=== PATIENT | male | born 1965 | race Caucasian/White ===

== ENCOUNTER 2017-11-12 06:36 | Emergency (ER) | payer BC ==
[2017-11-12 08:46] LABS: ADD MAN DIFF? NO
[2017-11-12 08:49] LABS: WHITE BLOOD COUNT 13.6 10^3/ul (4.8-10.8)
[2017-11-12 08:49] LABS: BASOPHIL # 0.1 10^3/ul (0.0-0.1); BASOPHILS % 0.6 % (0.0-2.0); EOSINOPHILS # 0.3 10^3/ul (0.0-0.5); EOSINOPHILS % 2.4 % (0.0-7.0); HEMATOCRIT 40.3 % (42.0-52.0); LYMPHOCYTES # 2.7 10^3/ul (0.8-2.9); LYMPHOCYTES % 20.1 % (15.0-51.0); MEAN CORPUSCULAR HEMOGLOBIN 26.5 pg (29.0-33.0); MEAN CORPUSCULAR HGB CONC 32.3 g/dl (32.0-37.0); MEAN CORPUSCULAR VOLUME 82.1 fl (82.0-101.0); MEAN PLATELET VOLUME 10.7 fl (7.4-10.4); MONOCYTE # 1.1 10^3/ul (0.3-0.9); NEUTROPHIL # 9.3 10^3/ul (1.6-7.5); NEUTROPHILS % 68.5 % (39.0-77.0); PLATELET COUNT 315 10^3/UL (140-415); RED BLOOD COUNT 4.91 10^6/ul (4.70-6.10); RED CELL DISTRIBUTION WIDTH 13.4 % (11.5-14.5)
[2017-11-12 09:16] LABS: ANION GAP 15 (8-16); BLOOD UREA NITROGEN 17 mg/dl (7-20); CALCIUM 8.6 mg/dl (8.4-10.2); CARBON DIOXIDE 25 mmol/L (21-31); CHLORIDE 107 mmol/L (97-110); CREATININE 0.87 mg/dl (0.61-1.24); GLUCOSE 120 mg/dl (70-220); POTASSIUM 4.1 mmol/L (3.5-5.1); SODIUM 143 mmol/L (135-144)
[2017-11-12 09:29] LABS: B-TYPE NATRIURETIC PEPTIDE 4350 PG/ML (0-125); TROPONIN-I 0.059 ng/ml (0.00-0.12)
[2017-11-12] MEDS ORDERED: NITROGLYCERIN 2% 1 GM OINT PKT TD (09:47)
[2017-11-12] MEDS ORDERED: ASPIRIN 325 MG TAB PO (09:47)
[2017-11-12] MEDS ORDERED: AZITHROMYCIN 500MG/NS (PMX) 250 ML IVPB (10:00)
[2017-11-12] MEDS ORDERED: NITROGLYCERIN (SL) 0.4 MG TAB SL (10:00)
[2017-11-12] MEDS ORDERED: CEFTRIAXONE 1 GM/50 ML (PMX) 50 ML IVPB (10:00)
== END 2017-11-12 10:30 | disposition left against medical advice (07) ==
LOC: FTE 06:36
DX: I21.4 Non-ST elevation (NSTEMI) myocardial infarction (principal); J18.9 Pneumonia, unspecified organism; I10 Essential (primary) hypertension; F17.210 Nicotine dependence, cigarettes, uncomplicated; Z79.82 Long term (current) use of aspirin
CPT/HCPCS: 36415; 71045; 80048; 83880; 84484; 85025; 93005; 99285-25

== ENCOUNTER 2018-08-04 20:26 | Inpatient (IN) | payer BC ==
[2018-08-04 21:25] LABS: ADD MAN DIFF? NO
[2018-08-04 21:28] LABS: WHITE BLOOD COUNT 9.6 10^3/ul (4.8-10.8)
[2018-08-04 21:28] LABS: BASOPHIL # 0.1 10^3/ul (0.0-0.1); BASOPHILS % 0.6 % (0.0-2.0); EOSINOPHILS # 0.4 10^3/ul (0.0-0.5); EOSINOPHILS % 4.6 % (0.0-7.0); HEMATOCRIT 42.9 % (42.0-52.0); HEMOGLOBIN 13.5 g/dl (14.0-18.0); MEAN CORPUSCULAR HEMOGLOBIN 26.8 pg (29.0-33.0); MEAN CORPUSCULAR HGB CONC 31.5 g/dl (32.0-37.0); MEAN CORPUSCULAR VOLUME 85.1 fl (82.0-101.0); MEAN PLATELET VOLUME 9.8 fl (7.4-10.4); MONOCYTE # 0.7 10^3/ul (0.3-0.9); MONOCYTES % 7.7 % (0.0-11.0); NEUTROPHIL # 6.3 10^3/ul (1.6-7.5); NEUTROPHILS % 65.8 % (39.0-77.0); PLATELET COUNT 273 10^3/UL (140-415); RED BLOOD COUNT 5.04 10^6/ul (4.70-6.10); RED CELL DISTRIBUTION WIDTH 13.6 % (11.5-14.5)
[2018-08-04 21:46] LABS: ALANINE AMINOTRANSFERASE 36 IU/L (13-69); ALBUMIN 3.3 g/dl (3.3-4.9); ALKALINE PHOSPHATASE 108 IU/L (42-121); ANION GAP 13 (8-16); ASPARTATE AMINO TRANSFERASE 25 IU/L (15-46); BILIRUBIN,INDIRECT 0.4 mg/dl (0-1.1); BILIRUBIN,TOTAL 0.4 mg/dl (0.2-1.3); BLOOD UREA NITROGEN 19 mg/dl (7-20); CALCIUM 8.8 mg/dl (8.4-10.2); CARBON DIOXIDE 28 mmol/L (21-31); CHLORIDE 106 mmol/L (97-110); CREATININE 0.88 mg/dl (0.61-1.24); GLUCOSE 127 mg/dl (70-220); SODIUM 143 mmol/L (135-144); TOTAL PROTEIN 6.3 g/dl (6.1-8.1)
[2018-08-04 21:47] LABS: INR 1.02; PROTIME 13.5 Sec (11.9-14.9); PT RATIO 1.1
[2018-08-04 21:48] LABS: PARTIAL THROMBOPLASTIN TIME 28.9 Sec (23.0-35.0)
[2018-08-04 21:57] LABS: B-TYPE NATRIURETIC PEPTIDE 1410 PG/ML (0-125); TROPONIN-I 0.021 ng/ml (0.000-0.120)
[2018-08-04] MEDS: NITROGLYCERIN 50 MG/D5W (PMX) 250 ML IV (22:01)
[2018-08-04] MEDS: FUROSEMIDE 40 MG INJ IV (22:58)
[2018-08-05] MEDS ORDERED: ONDANSETRON 4 MG INJ IV
[2018-08-05] MEDS ORDERED: ALBUTEROL/IPRATROPIUM (NEB) 3 ML AMP NEB
[2018-08-05] MEDS ORDERED: ACETAMINOPHEN 650MG/20.3ML CUP PO
[2018-08-05] MEDS: LOSARTAN 50 MG TAB PO ×2 (00:42→08:31)
[2018-08-05] MEDS: METOPROLOL 25 MG TAB PO (00:43)
[2018-08-05] MEDS ORDERED: NITROGLYCERIN 50 MG/D5W (PMX) 250 ML IV (03:17)
[2018-08-05 05:07] LABS: ADD MAN DIFF? NO; BASOPHIL # 0.1 10^3/ul (0.0-0.1); BASOPHILS % 0.8 % (0.0-2.0); EOSINOPHILS # 0.5 10^3/ul (0.0-0.5); EOSINOPHILS % 4.7 % (0.0-7.0); HEMATOCRIT 43.4 % (42.0-52.0); HEMOGLOBIN 13.7 g/dl (14.0-18.0); LYMPHOCYTES # 1.8 10^3/ul (0.8-2.9); LYMPHOCYTES % 16.6 % (15.0-51.0); MEAN CORPUSCULAR HEMOGLOBIN 26.8 pg (29.0-33.0); MEAN CORPUSCULAR HGB CONC 31.6 g/dl (32.0-37.0); MEAN CORPUSCULAR VOLUME 84.8 fl (82.0-101.0); MEAN PLATELET VOLUME 10.2 fl (7.4-10.4); MONOCYTES % 9.2 % (0.0-11.0); NEUTROPHIL # 7.2 10^3/ul (1.6-7.5); NEUTROPHILS % 68.3 % (39.0-77.0); PLATELET COUNT 266 10^3/UL (140-415); RED BLOOD COUNT 5.12 10^6/ul (4.70-6.10); RED CELL DISTRIBUTION WIDTH 13.9 % (11.5-14.5)
[2018-08-05 05:07] LABS: WHITE BLOOD COUNT 10.6 10^3/ul (4.8-10.8)
[2018-08-05] MEDS: NITROGLYCERIN 50 MG/D5W (PMX) 250 ML IV (05:15)
[2018-08-05 05:43] LABS: ALANINE AMINOTRANSFERASE 33 IU/L (13-69); ALBUMIN 3.2 g/dl (3.3-4.9); ALBUMIN/GLOBULIN RATIO 1.06; ALKALINE PHOSPHATASE 105 IU/L (42-121); ANION GAP 10 (8-16); ASPARTATE AMINO TRANSFERASE 22 IU/L (15-46); BILIRUBIN,INDIRECT 0.4 mg/dl (0-1.1); BILIRUBIN,TOTAL 0.4 mg/dl (0.2-1.3); BLOOD UREA NITROGEN 17 mg/dl (7-20); CALCIUM 8.8 mg/dl (8.4-10.2); CARBON DIOXIDE 28 mmol/L (21-31); CHLORIDE 107 mmol/L (97-110); CREATININE 0.73 mg/dl (0.61-1.24); GLUCOSE 122 mg/dl (70-220); POTASSIUM 3.7 mmol/L (3.5-5.1); SODIUM 141 mmol/L (135-144); TOTAL PROTEIN 6.2 g/dl (6.1-8.1)
[2018-08-05] MEDS: POTASSIUM CHLORIDE (SR) 20 MEQ TAB PO (06:31)
[2018-08-05] MEDS: FUROSEMIDE 20 MG TAB PO ×2 (06:32→18:59)
[2018-08-05] MEDS: FLUOXETINE 20 MG CAP PO ×2 (08:31→21:22)
[2018-08-05] MEDS: METOPROLOL (XL) 25 MG TAB PO (08:32)
[2018-08-05] MEDS: METHYLPREDNISOLONE 125 MG INJ IV (08:32)
[2018-08-05] MEDS: ASPIRIN (EC) 81 MG TAB PO (08:32)
[2018-08-05] MEDS: FAMOTIDINE 20 MG INJ IV ×2 (08:32→21:22)
[2018-08-05] MEDS: OLANZAPINE 2.5 MG TAB PO ×2 (08:32→08:42)
[2018-08-05] MEDS: ACETAMINOPHEN 325 MG TAB PO (08:35)
[2018-08-05] MEDS ORDERED: OLANZAPINE 2.5 MG PO (09:00)
[2018-08-05] MEDS ORDERED: ATORVASTATIN 10 MG PO (09:00)
[2018-08-05] MEDS: hydrALAzine 20 MG INJ IV ×2 (12:01→21:53)
[2018-08-05] MEDS: niCARdipine 25 MG in SOD CHLORIDE 0.9% 250 ML IV ×4 (12:26→22:00)
[2018-08-05] MEDS: LAMOTRIGINE 25 MG TAB PO (18:00)
[2018-08-05] MEDS: ATORVASTATIN 10 MG TAB PO (21:22)
[2018-08-06] MEDS: niCARdipine 25 MG in SOD CHLORIDE 0.9% 250 ML IV ×2 (00:42→06:24)
[2018-08-06] MEDS: FUROSEMIDE 20 MG TAB PO (05:25)
[2018-08-06] MEDS: FAMOTIDINE 20 MG INJ IV ×2 (08:14→20:07)
[2018-08-06] MEDS: ASPIRIN (EC) 81 MG TAB PO (08:14)
[2018-08-06] MEDS: FLUOXETINE 20 MG CAP PO ×2 (08:14→20:07)
[2018-08-06] MEDS: METHYLPREDNISOLONE 125 MG INJ IV (08:15)
[2018-08-06] MEDS: OLANZAPINE 2.5 MG TAB PO (08:15)
[2018-08-06] MEDS: METOPROLOL (XL) 25 MG TAB PO (08:15)
[2018-08-06] MEDS: LOSARTAN 50 MG TAB PO ×2 (08:15→20:09)
[2018-08-06] MEDS: LAMOTRIGINE 25 MG TAB PO (08:21)
[2018-08-06 13:55] LABS: ADD MAN DIFF? NO
[2018-08-06 13:56] LABS: BASOPHILS % 0.2 % (0.0-2.0); HEMATOCRIT 46.6 % (42.0-52.0); HEMOGLOBIN 14.8 g/dl (14.0-18.0); LYMPHOCYTES # 0.8 10^3/ul (0.8-2.9); LYMPHOCYTES % 4.1 % (15.0-51.0); MEAN CORPUSCULAR HEMOGLOBIN 26.7 pg (29.0-33.0); MEAN CORPUSCULAR HGB CONC 31.8 g/dl (32.0-37.0); MEAN CORPUSCULAR VOLUME 84.1 fl (82.0-101.0); MEAN PLATELET VOLUME 9.9 fl (7.4-10.4); MONOCYTE # 0.2 10^3/ul (0.3-0.9); MONOCYTES % 0.9 % (0.0-11.0); NEUTROPHIL # 18.7 10^3/ul (1.6-7.5); NEUTROPHILS % 94.1 % (39.0-77.0); PLATELET COUNT 324 10^3/UL (140-415); RED BLOOD COUNT 5.54 10^6/ul (4.70-6.10); RED CELL DISTRIBUTION WIDTH 13.7 % (11.5-14.5)
[2018-08-06 13:56] LABS: WHITE BLOOD COUNT 19.9 10^3/ul (4.8-10.8)
[2018-08-06] MEDS: METOPROLOL 25 MG TAB PO (14:00)
[2018-08-06 14:15] LABS: ALANINE AMINOTRANSFERASE 40 IU/L (13-69); ALBUMIN 3.6 g/dl (3.3-4.9); ALBUMIN/GLOBULIN RATIO 1.09; ALKALINE PHOSPHATASE 104 IU/L (42-121); ANION GAP 14 (8-16); ASPARTATE AMINO TRANSFERASE 23 IU/L (15-46); BILIRUBIN,INDIRECT 0.5 mg/dl (0-1.1); BILIRUBIN,TOTAL 0.5 mg/dl (0.2-1.3); BLOOD UREA NITROGEN 22 mg/dl (7-20); CALCIUM 9.4 mg/dl (8.4-10.2); CARBON DIOXIDE 24 mmol/L (21-31); CHLORIDE 107 mmol/L (97-110); CREATINE KINASE 28 IU/L (23-200); CREATININE 0.63 mg/dl (0.61-1.24); GLUCOSE 148 mg/dl (70-220); MAGNESIUM 2.3 mg/dl (1.7-2.5); PHOSPHORUS 3.7 mg/dl (2.5-4.9); POTASSIUM 4.5 mmol/L (3.5-5.1); SODIUM 140 mmol/L (135-144); TOTAL PROTEIN 6.9 g/dl (6.1-8.1)
[2018-08-06 14:27] LABS: CK INDEX 6.8; TROPONIN-I 0.017 ng/ml (0.000-0.120)
[2018-08-06] MEDS: NIFEdipine (XL) 30 MG TAB PO (15:04)
[2018-08-06] MEDS: DOCUSATE SODIUM 100 MG CAP PO ×2 (15:04→20:07)
[2018-08-06] MEDS: FUROSEMIDE 20 MG INJ IV (15:05)
[2018-08-06] MEDS: ENOXAPARIN 40 MG/0.4 ML SYG SC (15:06)
[2018-08-06 19:03] LABS: ADD UMIC NO; UR ASCORBIC ACID NEGATIVE (NEGATIVE); UR BILIRUBIN (Dip) NEGATIVE (NEGATIVE); UR BLOOD (Dip) NEGATIVE (NEGATIVE); UR CLARITY CLEAR (CLEAR); UR COLOR STRAW (YELLOW); UR GLUCOSE (Dip) NEGATIVE (NEGATIVE); UR KETONES (Dip) NEGATIVE (NEGATIVE); UR LEUKOCYTE ESTERASE (Dip) NEGATIVE Leu/ul (NEGATIVE); UR NITRITE (Dip) NEGATIVE (NEGATIVE); UR SPECIFIC GRAVITY (Dip) 1.012 (1.003-1.030); UR TOTAL PROTEIN (Dip) NEGATIVE (NEGATIVE); UR UROBILINOGEN (Dip) NEGATIVE (NEGATIVE)
[2018-08-06 19:18] LABS: BARBITURATES Negative (NEGATIVE); BENZODIAZEPINES Negative (NEGATIVE); CANNABINOIDS Negative (NEGATIVE); COCAINE Negative (NEGATIVE); OPIATES Negative (NEGATIVE)
[2018-08-06 19:23] LABS: AMPHETAMINE/METHAMPHETAMINE POSITIVE (NEGATIVE)
[2018-08-06] MEDS: ATORVASTATIN 10 MG TAB PO (20:08)
[2018-08-06] MEDS: hydrALAzine 20 MG INJ IV (23:03)
[2018-08-07 05:14] LABS: ADD MAN DIFF? NO; BASOPHILS % 0.1 % (0.0-2.0); HEMATOCRIT 46.8 % (42.0-52.0); HEMOGLOBIN 14.8 g/dl (14.0-18.0); LYMPHOCYTES % 4.8 % (15.0-51.0); MEAN CORPUSCULAR HEMOGLOBIN 26.8 pg (29.0-33.0); MEAN CORPUSCULAR HGB CONC 31.6 g/dl (32.0-37.0); MEAN CORPUSCULAR VOLUME 84.8 fl (82.0-101.0); MEAN PLATELET VOLUME 10.3 fl (7.4-10.4); MONOCYTE # 0.8 10^3/ul (0.3-0.9); MONOCYTES % 3.8 % (0.0-11.0); NEUTROPHIL # 19.1 10^3/ul (1.6-7.5); NEUTROPHILS % 90.6 % (39.0-77.0); PLATELET COUNT 344 10^3/UL (140-415); RED BLOOD COUNT 5.52 10^6/ul (4.70-6.10); RED CELL DISTRIBUTION WIDTH 13.8 % (11.5-14.5)
[2018-08-07 05:14] LABS: WHITE BLOOD COUNT 21.1 10^3/ul (4.8-10.8)
[2018-08-07 05:38] LABS: ANION GAP 14 (8-16); BLOOD UREA NITROGEN 30 mg/dl (7-20); CALCIUM 9.4 mg/dl (8.4-10.2); CARBON DIOXIDE 26 mmol/L (21-31); CHLORIDE 105 mmol/L (97-110); CREATININE 0.67 mg/dl (0.61-1.24); GLUCOSE 172 mg/dl (70-220); MAGNESIUM 2.3 mg/dl (1.7-2.5); POTASSIUM 4.5 mmol/L (3.5-5.1); SODIUM 140 mmol/L (135-144)
[2018-08-07 05:43] LABS: CREATINE KINASE < 20 IU/L (23-200)
[2018-08-07 05:50] LABS: CK-MB 1.53 ng/ml (0.0-2.4); TROPONIN-I 0.013 ng/ml (0.000-0.120)
[2018-08-07] MEDS: ASPIRIN (EC) 81 MG TAB PO (08:19)
[2018-08-07] MEDS: METHYLPREDNISOLONE 125 MG INJ IV (08:19)
[2018-08-07] MEDS: LAMOTRIGINE 25 MG TAB PO ×2 (08:19→08:56)
[2018-08-07] MEDS: FAMOTIDINE 20 MG INJ IV (08:19)
[2018-08-07] MEDS: OLANZAPINE 2.5 MG TAB PO (08:19)
[2018-08-07] MEDS: FUROSEMIDE 20 MG INJ IV (08:19)
[2018-08-07] MEDS: DOCUSATE SODIUM 100 MG CAP PO (08:20)
[2018-08-07] MEDS: FLUOXETINE 20 MG CAP PO (08:20)
[2018-08-07] MEDS: LOSARTAN 50 MG TAB PO (08:21)
[2018-08-07] MEDS: ENOXAPARIN 40 MG/0.4 ML SYG SC (08:46)
[2018-08-07] MEDS ORDERED: FLUTICASONE/VILANTEROL 200-25 INH DEVICE INH (09:00)
[2018-08-07] MEDS ORDERED: TIOTROPIUM 18 MCG CAPSULE INHA DEV INH (09:00)
[2018-08-07] MEDS ORDERED: METOPROLOL (XL) 50 MG TAB PO (09:00)
[2018-08-07] MEDS: predniSONE 10 MG TAB PO (09:00)
[2018-08-07] MEDS ORDERED: ATORVASTATIN 10 MG TAB PO (21:00)
== END 2018-08-07 10:11 | disposition left against medical advice (07) | DRG 304 ==
LOC: ICU 22:25 → E/R 20:26
DX: I16.1 Hypertensive emergency (principal); I50.43 Acute on chronic combined systolic (congestive) and diastolic (congestive) heart failure; Z68.41 Body mass index [BMI] 40.0-44.9, adult; J44.1 Chronic obstructive pulmonary disease with (acute) exacerbation; I42.9 Cardiomyopathy, unspecified; I16.0 Hypertensive urgency; I11.0 Hypertensive heart disease with heart failure; F43.10 Post-traumatic stress disorder, unspecified; I20.9 Angina pectoris, unspecified; G47.33 Obstructive sleep apnea (adult) (pediatric); E66.9 Obesity, unspecified; F17.210 Nicotine dependence, cigarettes, uncomplicated; Z59.0 Homelessness; F25.0 Schizoaffective disorder, bipolar type; Z79.82 Long term (current) use of aspirin; E78.00 Pure hypercholesterolemia, unspecified
CPT/HCPCS: 36415; 71045; 80048; 80053; 80307; 81003; 82550; 82553; 83735; 83880; 84100; 84484; 85025; 85610; 85730; 93005; 93306; 93970; 93976; 96374; 99291-25

== ENCOUNTER 2019-02-01 16:26 | Inpatient (IN) | payer BC ==
[2019-02-01] MEDS ORDERED: CEFTRIAXONE 1 GM/50 ML (PMX) 50 ML IVPB (16:45)
[2019-02-01] MEDS ORDERED: AZITHROMYCIN 500MG/NS (PMX) 250 ML IV (16:45)
[2019-02-01] MEDS: MAGNESIUM SULFATE 2 GM/50 ML 50 ML IVPB (17:01)
[2019-02-01] MEDS: IPRATROPIUM (NEB) 0.5 MG/2.5 ML AMP INH (17:01)
[2019-02-01] MEDS: ALBUTEROL 0.5% (NEB) 2.5 MG/0.5 ML AMP INH (17:01)
[2019-02-01] MEDS: DEXAMETHASONE 10 MG/ML 1 ML INJ IV (17:02)
[2019-02-01] MEDS: CEFEPIME 2GM/50 ML (PMX) 50 ML IVPB (17:02)
[2019-02-01] MEDS: ACETAMINOPHEN 325 MG TAB PO (17:02)
[2019-02-01] MEDS: FUROSEMIDE 40 MG INJ IV (17:02)
[2019-02-01] MEDS: NITROGLYCERIN 2% 1 GM OINT PKT TD (17:03)
[2019-02-01] MEDS: NITROGLYCERIN (SL) 0.4 MG TAB SL (17:03)
[2019-02-01 17:17] LABS: WHITE BLOOD COUNT 8.8 10^3/ul (4.8-10.8)
[2019-02-01 17:17] LABS: ABNORMAL IP MESSAGE 1; HEMATOCRIT 44.9 % (42.0-52.0); HEMOGLOBIN 13.8 g/dl (14.0-18.0); MEAN CORPUSCULAR HEMOGLOBIN 23.8 pg (29.0-33.0); MEAN CORPUSCULAR HGB CONC 30.7 g/dl (32.0-37.0); MEAN CORPUSCULAR VOLUME 77.4 fl (82.0-101.0); MEAN PLATELET VOLUME 10.1 fl (7.4-10.4); PLATELET COUNT 277 10^3/UL (140-415); POSITIVE DIFF @See below; RED CELL DISTRIBUTION WIDTH 15.4 % (11.5-14.5)
[2019-02-01] MEDS: ONDANSETRON 4 MG INJ IV (17:17)
[2019-02-01 17:23] LABS: ADD MAN DIFF? YES
[2019-02-01 17:30] LABS: LACTIC ACID 1.5 mmol/L (0.5-2.0)
[2019-02-01 17:33] LABS: ALANINE AMINOTRANSFERASE 42 IU/L (13-69); ALBUMIN 3.9 g/dl (3.3-4.9); ALBUMIN/GLOBULIN RATIO 1.34; ALKALINE PHOSPHATASE 140 IU/L (42-121); ANION GAP 9 (5-13); ASPARTATE AMINO TRANSFERASE 41 IU/L (15-46); BILIRUBIN,INDIRECT 0.2 mg/dl (0-1.1); BILIRUBIN,TOTAL 0.2 mg/dl (0.2-1.3); BLOOD UREA NITROGEN 21 mg/dl (7-20); CALCIUM 8.7 mg/dl (8.4-10.2); CARBON DIOXIDE 22 mmol/L (21-31); CHLORIDE 107 mmol/L (97-110); CREATININE 0.76 mg/dl (0.61-1.24); Estimated GFR > 60 mL/min (>60); GLUCOSE 98 mg/dl (70-220); POTASSIUM 4.3 mmol/L (3.5-5.1); SODIUM 138 mmol/L (135-144); TOTAL PROTEIN 6.8 g/dl (6.1-8.1)
[2019-02-01 17:35] LABS: INR 0.95; PROTIME 12.8 Sec (11.9-14.9)
[2019-02-01 17:36] LABS: PARTIAL THROMBOPLASTIN TIME 28.3 Sec (23.0-35.0)
[2019-02-01] MEDS: VANCOMYCIN 1 GM (PMX) 250 ML IVPB (17:44)
[2019-02-01 17:45] LABS: B-TYPE NATRIURETIC PEPTIDE 2350 PG/ML (0-125); TROPONIN-I 0.053 ng/ml (0.000-0.120)
[2019-02-01 17:50] LABS: ANISOCYTOSIS 2+ (0-0); BAND NEUTROPHILS #M 0.2 10^3/ul (0.0-0.6); BAND NEUTROPHILS % (M) 3 % (0-4); EOSINOPHILS % (M) 1 % (0-7); LYMPHOCYTES #M 0.5 10^3/ul (0.8-2.9); LYMPHOCYTES % (M) 6 % (15-51); MICROCYTOSIS 2+ (0-0); MONOCYTE #M 1.1 10^3/ul (0.3-0.9); MONOCYTES % (M) 13 % (0-11); PLATELET ESTIMATE NORMAL; POIKILOCYTOSIS 2+ (0-0); POLYCHROMASIA 1+ (0-0); SEG NEUT #M 6.8 10^3/ul (1.6-7.5); SEGMENTED NEUTROPHILS (M) % 77 % (39-77); SMUDGE%M 20 % (0-0)
[2019-02-01 18:04] LABS: ADD UMIC NO; UR ASCORBIC ACID NEGATIVE (NEGATIVE); UR BILIRUBIN (Dip) NEGATIVE (NEGATIVE); UR BLOOD (Dip) NEGATIVE (NEGATIVE); UR CLARITY CLEAR (CLEAR); UR COLOR YELLOW (YELLOW); UR GLUCOSE (Dip) NEGATIVE (NEGATIVE); UR KETONES (Dip) NEGATIVE (NEGATIVE); UR LEUKOCYTE ESTERASE (Dip) NEGATIVE Leu/ul (NEGATIVE); UR NITRITE (Dip) NEGATIVE (NEGATIVE); UR SPECIFIC GRAVITY (Dip) 1.021 (1.003-1.030); UR TOTAL PROTEIN (Dip) NEGATIVE (NEGATIVE); UR UROBILINOGEN (Dip) NEGATIVE (NEGATIVE)
[2019-02-01] MEDS ORDERED: ACETAMINOPHEN 325 MG TAB PO (19:00)
[2019-02-01] MEDS ORDERED: ONDANSETRON 4 MG INJ IV ×2 (19:00→19:30)
[2019-02-01] MEDS ORDERED: IPRATROPIUM (NEB) 0.5 MG/2.5 ML AMP HHN (19:30)
[2019-02-01] MEDS ORDERED: LEVALBUTEROL (NEB) 1.25 MG/0.5 ML AMP HHN (19:30)
[2019-02-01] MEDS ORDERED: NACL 0.9% 3 ML SYG IV (19:30)
[2019-02-01] MEDS: IPRATROPIUM (NEB) 0.5 MG/2.5 ML AMP HHN (20:00)
[2019-02-01] MEDS: BUDESONIDE (NEB) 0.5MG/2ML AMP HHN (20:00)
[2019-02-01] MEDS: LEVALBUTEROL (NEB) 1.25 MG/0.5 ML AMP HHN (20:00)
[2019-02-01 20:20] LABS: AADO2 Arterial 72.6 mmHg (7.0-24.0); Allen Test ACCEPTAB; Arterial Base Excess -2.6 mmol/L (-3.0-3); Arterial COHb 0.2 % (0.0-3.0); Arterial Fraction of Oxyhgb 95.4 % (93.0-99.0); Arterial HCO3 20.9 mmol/L (22.0-26.0); Arterial MetHb 0.4 % (0.0-1.5); Arterial pCO2 32.9 mmhg (35-45); MODE NASAL CANNULA; Site Right Radial
[2019-02-01 23:12] LABS: LACTIC ACID 2.6 mmol/L (0.5-2.0)
[2019-02-02] MEDS: ACETAMINOPHEN 325 MG TAB PO ×2 (00:54→20:22)
[2019-02-02 01:07] LABS: LACTIC ACID 2.8 mmol/L (0.5-2.0)
[2019-02-02] MEDS: LEVALBUTEROL (NEB) 1.25 MG/0.5 ML AMP HHN ×4 (02:00→19:38)
[2019-02-02] MEDS: SUMATRIPTAN 6 MG/0.5 ML INJ SC (02:04)
[2019-02-02] MEDS: hydrALAzine 20 MG INJ IV (04:47)
[2019-02-02 08:38] LABS: ADD MAN DIFF? NO
[2019-02-02] MEDS: LEVOFLOXACIN 500MG/D5W (PMX) 100 ML IVPB (08:42)
[2019-02-02] MEDS: METHYLPREDNISOLONE 125 MG INJ IV (08:43)
[2019-02-02] MEDS: LOSARTAN 50 MG TAB PO ×2 (08:45→20:21)
[2019-02-02] MEDS: ASPIRIN (EC) 81 MG TAB PO (08:45)
[2019-02-02 08:46] LABS: WHITE BLOOD COUNT 5.7 10^3/ul (4.8-10.8)
[2019-02-02 08:46] LABS: BASOPHILS % 0.2 % (0.0-2.0); HEMATOCRIT 45.9 % (42.0-52.0); HEMOGLOBIN 13.9 g/dl (14.0-18.0); LYMPHOCYTES # 0.8 10^3/ul (0.8-2.9); LYMPHOCYTES % 13.2 % (15.0-51.0); MEAN CORPUSCULAR HEMOGLOBIN 23.3 pg (29.0-33.0); MEAN CORPUSCULAR HGB CONC 30.3 g/dl (32.0-37.0); MEAN PLATELET VOLUME 10.3 fl (7.4-10.4); MONOCYTE # 0.5 10^3/ul (0.3-0.9); MONOCYTES % 8.1 % (0.0-11.0); NEUTROPHIL # 4.4 10^3/ul (1.6-7.5); NEUTROPHILS % 77.6 % (39.0-77.0); PLATELET COUNT 300 10^3/UL (140-415); RED BLOOD COUNT 5.96 10^6/ul (4.70-6.10); RED CELL DISTRIBUTION WIDTH 15.5 % (11.5-14.5)
[2019-02-02] MEDS: FUROSEMIDE 40 MG TAB PO (08:46)
[2019-02-02] MEDS: FLUOXETINE 20 MG CAP PO ×2 (08:46→20:22)
[2019-02-02] MEDS ORDERED: NON-FORMULARY/PATIENT OWN MED (Salmeterol Xinaf/Fluticasone* (Advair*) 1 INH) INHALATION (09:00)
[2019-02-02 09:20] LABS: ALANINE AMINOTRANSFERASE 36 IU/L (13-69); ALBUMIN/GLOBULIN RATIO 1.33; ALKALINE PHOSPHATASE 112 IU/L (42-121); ANION GAP 13 (5-13); ASPARTATE AMINO TRANSFERASE 39 IU/L (15-46); BILIRUBIN,INDIRECT 0.2 mg/dl (0-1.1); BILIRUBIN,TOTAL 0.2 mg/dl (0.2-1.3); BLOOD UREA NITROGEN 22 mg/dl (7-20); CALCIUM 8.7 mg/dl (8.4-10.2); CARBON DIOXIDE 24 mmol/L (21-31); CHLORIDE 104 mmol/L (97-110); CREATININE 0.61 mg/dl (0.61-1.24); Estimated GFR > 60 mL/min (>60); GLUCOSE 137 mg/dl (70-220); MAGNESIUM 2.3 mg/dl (1.7-2.5); POTASSIUM 4.7 mmol/L (3.5-5.1); SODIUM 141 mmol/L (135-144)
[2019-02-02 09:49] LABS: THYROID STIMULATING HORMONE 0.319 MIU/L (0.465-4.680)
[2019-02-02] MEDS: OLANZAPINE 2.5 MG TAB PO ×2 (10:17→10:26)
[2019-02-02] MEDS: LAMOTRIGINE 25 MG TAB PO (10:17)
[2019-02-02 10:40] LABS: HEMOGLOBIN A1C 6.1 % (0-5.9)
[2019-02-02] MEDS: IPRATROPIUM (NEB) 0.5 MG/2.5 ML AMP HHN ×3 (11:21→19:38)
[2019-02-02] MEDS: BUDESONIDE (NEB) 0.5MG/2ML AMP HHN ×2 (11:22→19:56)
[2019-02-02] MEDS: CEFTRIAXONE 1 GM/50 ML (PMX) 50 ML IVPB (16:36)
[2019-02-02] MEDS: AZITHROMYCIN 500MG/NS (PMX) 250 ML IVPB (18:17)
[2019-02-02] MEDS: FUROSEMIDE 40 MG INJ IV (18:24)
[2019-02-02] MEDS: BUDESONIDE (NEB) 0.5MG/2ML AMP INH (20:00)
[2019-02-02] MEDS: ARFORMOTEROL TARTRATE 15MCG/2 ML AMP INH (20:00)
[2019-02-02] MEDS: ATORVASTATIN 10 MG TAB PO (20:21)
[2019-02-03] MEDS: LEVALBUTEROL (NEB) 1.25 MG/0.5 ML AMP HHN (02:00)
[2019-02-03] MEDS: hydrALAzine 20 MG INJ IV ×2 (04:51→13:07)
[2019-02-03] MEDS: FUROSEMIDE 40 MG INJ IV (05:59)
[2019-02-03] MEDS: FLUOXETINE 20 MG CAP PO (07:51)
[2019-02-03] MEDS: LAMOTRIGINE 25 MG TAB PO (07:51)
[2019-02-03] MEDS: OLANZAPINE 2.5 MG TAB PO (07:51)
[2019-02-03] MEDS: ASPIRIN (EC) 81 MG TAB PO (07:51)
[2019-02-03] MEDS: LOSARTAN 50 MG TAB PO (07:52)
[2019-02-03] MEDS: METHYLPREDNISOLONE 40 MG INJ IV (08:36)
[2019-02-03] MEDS: ACETAMINOPHEN 325 MG TAB PO (08:41)
[2019-02-03 08:54] LABS: ADD MAN DIFF? NO
[2019-02-03 09:03] LABS: ABNORMAL IP MESSAGE 1; BASOPHILS % 0.2 % (0.0-2.0); HEMATOCRIT 46.3 % (42.0-52.0); HEMOGLOBIN 14.1 g/dl (14.0-18.0); LYMPHOCYTES # 1.4 10^3/ul (0.8-2.9); LYMPHOCYTES % 9.2 % (15.0-51.0); MEAN CORPUSCULAR HEMOGLOBIN 23.7 pg (29.0-33.0); MEAN CORPUSCULAR HGB CONC 30.5 g/dl (32.0-37.0); MEAN CORPUSCULAR VOLUME 77.8 fl (82.0-101.0); MEAN PLATELET VOLUME 10.9 fl (7.4-10.4); MONOCYTE # 1.5 10^3/ul (0.3-0.9); NEUTROPHIL # 12.1 10^3/ul (1.6-7.5); NEUTROPHILS % 79.7 % (39.0-77.0); PLATELET COUNT 321 10^3/UL (140-415); POSITIVE DIFF @See below; RED BLOOD COUNT 5.95 10^6/ul (4.70-6.10); RED CELL DISTRIBUTION WIDTH 15.5 % (11.5-14.5)
[2019-02-03 09:03] LABS: WHITE BLOOD COUNT 15.1 10^3/ul (4.8-10.8)
[2019-02-03 09:22] LABS: ANION GAP 10 (5-13); BLOOD UREA NITROGEN 36 mg/dl (7-20); CARBON DIOXIDE 27 mmol/L (21-31); CHLORIDE 103 mmol/L (97-110); CREATININE 0.85 mg/dl (0.61-1.24); Estimated GFR > 60 mL/min (>60); GLUCOSE 168 mg/dl (70-220); POTASSIUM 4.1 mmol/L (3.5-5.1); SODIUM 140 mmol/L (135-144)
[2019-02-03] MEDS: FUROSEMIDE 40 MG TAB PO (10:05)
[2019-02-03] MEDS: AMLODIPINE 10 MG TAB PO (13:07)
[2019-02-05 03:53] LABS: AMPHETAMINES (1000 ng/mL SCRN) NEGATIVE
== END 2019-02-03 15:05 | disposition left against medical advice (07) | DRG 871 ==
LOC: 6WM 18:43 → E/R 16:26
DX: A41.9 Sepsis, unspecified organism (principal); I50.23 Acute on chronic systolic (congestive) heart failure; J96.00 Acute respiratory failure, unspecified whether with hypoxia or hypercapnia; J44.1 Chronic obstructive pulmonary disease with (acute) exacerbation; I42.0 Dilated cardiomyopathy; E66.01 Morbid (severe) obesity due to excess calories; Z68.39 Body mass index [BMI] 39.0-39.9, adult; F43.10 Post-traumatic stress disorder, unspecified; F31.9 Bipolar disorder, unspecified; Z72.0 Tobacco use; F15.10 Other stimulant abuse, uncomplicated; I11.0 Hypertensive heart disease with heart failure; J20.9 Acute bronchitis, unspecified; E78.5 Hyperlipidemia, unspecified
CPT/HCPCS: 36415; 36600; 71045; 80048; 80053; 80307; 81003; 82803; 83036; 83605; 83735; 83880; 84443; 84484; 85025; 85610; 85730; 87040; 87086; 87400; 93005; 94640; 94644; 94660; 96365; 96368; 96375; 99291-25